=== PATIENT | female | born 1985 | race Caucasian/White ===

== ENCOUNTER → 2018-06-26 | Outpatient (CLI) | payer BC ==
--- NOTE | 2018-06-26 19:21 | Diagnostic Imaging Report ---
INDICATION: Elevated AFT 34 weeks gestation, clinical. TECHNIQUE: Multiple real-time grayscale images were obtained over the gravid uterus. COMPARISON: None FINDINGS: Wilson gestation is in cephalic position with heart rate 127 beats per minute. There is an abnormal biophysical profile with 0 points awarded (deductions for absence of breathing and insufficient movement). Posture/tone and amniotic fluid volume receive normal scores for an overall 4/8. Gestation measures 34 weeks 1 day today compared with 35 weeks 6 days based upon the initial exam. The placenta is fundal and eccentric to the right with no abruption or previa. spine appears unremarkable, previously suboptimally visualized. IMPRESSION: 1. Cephalic position wilson viable IUP today measures 34 weeks 1 day. This is 1 week 5 days relative decreased growth from the initial exam. 2. Abnormal biophysical profile 4/8 and demerits/0 points awarded owing to the deficient breathing motion and movement. The ordering physician is aware of these findings. Biometrical measurements are as follows: Biparietal 8.44 cm, age 34 weeks 1 day. Head circumference 30.59 cm, age 34 weeks 1 day. Abdominal circumference 29.35 cm, age 33 weeks 3 days. Femur length 6.77 cm, age 34 weeks 6 days. Sonographic estimate age: 34 weeks 1 day. Sonographic estimated date of delivery: 08/06/18. Estimated Weight: 2301 gm (+/- 336 gm). LMP percentile: 9%. heart rate: 127 beats per minute. number: 1 of 1. Dictated by: Dictated on workstation # [id number]
== END ==
LOC: RAD 13:54
PROVIDERS: ATTEND Obstetrics & Gynecology
DX: O26.893 Other specified pregnancy related conditions, third trimester (principal); R77.2 Abnormality of alphafetoprotein; Z3A.34 34 weeks gestation of pregnancy
CPT/HCPCS: 76805; 76819